=== PATIENT | male | born 1940 | race Caucasian/White ===

== ENCOUNTER 2024-02-12 20:18 | Emergency (ER) | payer MEDICARE, SELFPAY ==
--- NOTE | ~2024-02-12 | XR_ITS ---
EXAMINATION: XR CHEST CLINICAL INFORMATION: SOB. COMPARISON: CT chest 02/12/2024 TECHNIQUE: 1 view of the chest was obtained. FINDINGS: The lungs are well-expanded with left basilar scarring or atelectasis. Rest of lungs are clear. The heart size and pulmonary vascularity is normal. There are pacer electrodes in right atrium and right ventricle. No gross bony abnormality seen. XR/XR chest 1V IMPRESSION: Left basilar atelectasis or scarring. No acute process seen.
--- NOTE | ~2024-02-12 | CT_ITS ---
EXAMINATION: CT CHEST WITHOUT CONTRAST CLINICAL INFORMATION: Aspiration COMPARISON: Chest x-ray February 12, 2024 TECHNIQUE: Multidetector volumetric CT imaging of the chest was done. Axial MIP volume rendering provided. Sagittal and coronal reformatted images were obtained. This CT examination was performed using dose optimization techniques as appropriate, variously including the following: *Automated exposure control *Adjustment of mA and/or kV according to patient size (this includes techniques or standardized protocols for targeted exams where dose is matched to indication/reason for exam; i.e. extremities or head) *Use of iterative reconstruction technique DLP: 358 mGy-cm FINDINGS: LUNGS: No acute airspace disease. Small band of linear scarring or linear atelectasis at the left lung base. The left diaphragm is asymmetrically elevated above the right. Lungs are otherwise normally aerated. Central bronchi are open. No suspicious lung mass. There are a few scattered calcified granulomas. Linear parenchymal scarring at the anterior right lung base. MEDIASTINUM: No significant lymphadenopathy. There are a few shotty subcentimeter lymph nodes in the pretracheal retrovascular space, AP window and subcarina. The heart size is normal. Small pericardial effusion. Pacemaker leads in right atrium and right ventricle. Vascular calcifications of aorta and great vessels. No aneurysm of aorta. CORONARY ARTERY CALCIFICATION: Heavy coronary artery calcification. PLEURA: There is no pleural effusion. No pleural mass or thickening. AXILLA: No lymphadenopathy. UPPER ABDOMEN: Small calcified gallstones layering dependently in the gallbladder. No gallbladder wall thickening or pericholecystic fluid. No dilatation of bile ducts. No focal abnormality in visualized portions of the solid organs of the upper abdomen. OSSEOUS STRUCTURES: Multilevel degenerative spondylosis spine. CT/CT chest wo IV con IMPRESSION: 1. No acute airspace disease. 2. Pacemaker leads in right atrium and right ventricle. Small pericardial effusion. 3. Cholelithiasis. Fleischner guidelines were followed.
[2024-02-12 20:34] VITALS: BP 140/70; PULSE 80; O2SAT 97; BMI 28.8
--- NOTE | 2024-02-12 20:37 | ECG_ITS ---
Test Reason : SOB Blood Pressure : / mmHG Vent. Rate : 082 BPM Atrial Rate : 082 BPM P-R Int : 176 ms QRS Dur : 152 ms QT Int : 404 ms P-R-T Axes : 035 016 015 degrees QTc Int : 472 ms Sinus rhythm with sinus arrhythmia with occasional Premature ventricular complexes Right bundle branch block Abnormal ECG No previous ECGs available Referred By: Generic ED Physician Electronically Signed By:KARRI BORGES MD
--- NOTE | 2024-02-12 20:46 | ED.SOB ---
HPI - SOB/Dyspnea General Chief Complaint: Dyspnea Stated Complaint: SOB Time Seen by Provider: 02/12/24 20:45 Source: patient Mode of arrival: ambulatory Limitations: no limitations History of Present Illness ED Provider: adriana CANSECO Narrative: Patient's history of hiatal hernia status post repair few months ago was doing much better no difficulty in swallowing patient had supper at 17:00 within half an hour of eating meals patient has started coughing and feels something in mid chest similar to that in the past before surgery but less severe no chest pain no fever or chills patient will drink liquids afterwards Related Data Previous Rx's ?Medication ?Instructions ?Recorded benzonatate 200 mg capsule 200 mg PO TID PRN cough #30 caps 02/12/24 Allergies Allergy/AdvReac Type Severity Reaction Status Date / Time No Known Allergies Allergy Verified 02/12/24 20:37 Review of Systems Review of Systems: Yes all other systems are reviewed and are negative [facility] Social History Social History Smoked in Last 30 Days: No Use of substances other than those prescribed or required for medical reasons: No Advance Directives: No Advance Directives Information Provided: No Do you have a plan to hurt others: No Plan Physical Exam Vital Signs: Vital Signs: Last Vital Signs Temp 99.9 F 02/12/24 22:35 Pulse 88 02/12/24 22:35 Resp 14 02/12/24 22:35 BP 119/63 02/12/24 22:35 Pulse Ox 95 02/12/24 22:35 O2 Del Method Room Air 02/12/24 22:35 BMI result Body Mass Index 28.8 Appearance: Alert. Oriented X3. No acute distress. Eyes: No pallor or icterus ENT: Pharynx normal. Oral Mucosa moist Neck: Normal inspection. Neck supple. CVS: Normal heart rate and rhythm. Pulses normal. Respiratory: No respiratory distress. Equal air entry bilateral, rales on the left side posteriorly Abdomen: Soft and nontender. Bowel sounds are present, Skin: Skin warm and dry. Normal skin color. Normal skin turgor. Extremities: No lower extremity edema. No calf tenderness Neuro: Oriented X 3. No motor deficit. Medications Administered Discontinued Medications Generic Name Dose Route Start Last Admin Trade Name Freq PRN Reason Stop Dose Admin Benzonatate 200 mg 02/12/24 22:14 02/12/24 22:23 Benzonatate 100 Mg Capsule PO 02/12/24 22:15 200 mg ONCE ONE Administration Medical Decision Making Medical Decision Making [facility] Narrative: Patient with acute irritation in the throat after eating food CT scan negative for any aspiration discharge patient home on supportive treatment Differential Diagnosis Differential Diagnoses: The differential diagnosis associated with the presentation includes Aspiration pneumonia/bronchitis Lab Data [facility] Lab Attestation statement: I reviewed the patient's lab results. 02/12/24 20:45 02/12/24 20:45 Labs: Lab Results 02/12/24 Range/Units 20:45 WBC 11.1 H (4.8-10.8) X10*3/uL RBC 4.24 L (4.60-5.80) X10*6/uL Hgb 12.0 L (14.0-18.0) g/dl Hct 35.1 L (42.0-52.0) % MCV 82.8 (80.0-98.0) fL MCH 28.3 (27.0-33.0) pg MCHC 34.2 (31.0-36.0) g/dl RDW 14.5 (11.0-16.0) % Plt Count 210 (160-400) X10*3/uL MPV 9.6 (9.4-12.4) fL Immature Gran % (Auto) 0.5 H (0.0-0.4) % Neut % (Auto) 71.4 (45-73) % Lymph % (Auto) 15.9 L (20-40) % Anson % (Auto) 8.5 (2-11) % Eos % (Auto) 3.2 (0-4) % Baso % (Auto) 0.5 (0-2) % Lymph # (Auto) 1.8 (1.2-4.9) X10*3/uL Anson # (Auto) 0.9 (0.1-1.2) X10*3/uL Eos # (Auto) 0.4 (0.0-0.4) X10*3/uL Baso # (Auto) 0.1 (0.0-0.2) X10*3/uL Abs Immat Gran (auto) 0.05 H (0.00-0.03) X10*3/uL Absolute Neuts (auto) 7.9 (2.0-8.3) x10*3/uL Absolute Nucleated RBC 0.000 (0.0-0.012) X10*3/uL Nucleated RBC % (auto) 0.0 (0.0-0.2) /100WBC Sodium 134 L (135-145) mmol/L Potassium 3.9 (3.3-5.1) mmol/L Chloride 97 (96-108) mmol/L Carbon Dioxide 24 (22-29) mmol/L Anion Gap 17 (12-20) BUN 15 (9-16) mg/dL Creatinine 0.88 (0.5-1.4) mg/dL Estim Creat Clear Calc 73.4 Estimated GFR > 60 Random Glucose 178 H (60-115) mg/dL Calcium 9.4 (8.4-10.2) mg/dL Magnesium 1.7 (1.6-2.6) mg/dL Total Bilirubin 0.3 (0.0-1.0) mg/dL AST 20 (5-37) U/L ALT 11 (0-40) U/L Alkaline Phosphatase 75 (39-117) U/L Troponin I High Sens 15.6 (<3.5-35.0) ng/L B-Natriuretic Peptide 113 H (<100) pg/mL Total Protein 6.8 (6.5-8.0) g/dL Albumin 3.6 (3.5-5.0) g/dL Influenza Type A (PCR) NEGATIVE (Negative) Influenza Type B (PCR) NEGATIVE (Negative) RSV RNA Qual (PCR) NEGATIVE (Negative) SARS-CoV-2 RNA (RT-PCR) NEGATIVE (Negative) Independent Interpretation I performed an independent interpretation of an: CT Scan Radiology Impression Discussion of test interpretation with radiology: I have reviewed the radiologist's reading. Discharge Plan Discharge Clinical Impression: Cough Patient Disposition: Home, Self-Care Instructions: Acute Cough (ED) Additional Instructions: Likely have irritation which causing the cough no signs of aspiration CT scan is negative Cough drops as advised Follow with PCP if cough continues or have fever Prescriptions: New benzonatate 200 mg capsule 200 mg PO TID PRN (Reason: cough) Qty: 30 0RF Interventions: ED Discharge Assessment Last Done: 02/12/24 22:35 Discharge Date/Time: 02/12/24 22:36 Print Language: Japanese
[2024-02-12 20:51] LABS: MANUAL DIFF FLAG NO
[2024-02-12 20:52] VITALS: BP 128/60; PULSE 77; RESP 17; TEMP 37.2; O2SAT 97
[2024-02-12 20:56] LABS: Basophils Absolute Auto 0.1 X10*3/uL (0.0-0.2); Basophils Percent Auto 0.5 % (0-2); Eosinophils Absolute Auto 0.4 X10*3/uL (0.0-0.4); Eosinophils Percent Auto 3.2 % (0-4); Hematocrit 35.1 % (42.0-52.0); Imm Gran Abs Auto 0.05 X10*3/uL (0.00-0.03); Imm Gran Pct Auto 0.5 % (0.0-0.4); Lymphocytes Absolute Auto 1.8 X10*3/uL (1.2-4.9); Lymphocytes Percent Auto 15.9 % (20-40); Mean Corpuscular HGB Conc 34.2 g/dl (31.0-36.0); Mean Corpuscular Hemoglobin 28.3 pg (27.0-33.0); Mean Corpuscular Volume 82.8 fL (80.0-98.0); Mean Platelet Volume 9.6 fL (9.4-12.4); Monocytes Absolute Auto 0.9 X10*3/uL (0.1-1.2); Monocytes Percent Auto 8.5 % (2-11); Neutrophils Absolute Auto 7.9 x10*3/uL (2.0-8.3); Neutrophils Percent Auto 71.4 % (45-73); Platelet Count 210 X10*3/uL (160-400); Red Blood Count 4.24 X10*6/uL (4.60-5.80); Red Cell Distribution Width 14.5 % (11.0-16.0); White Blood Count 11.1 X10*3/uL (4.8-10.8)
[2024-02-12 21:07] LABS: Alanine Aminotransferase 11 U/L (0-40); Albumin Level 3.6 g/dL (3.5-5.0); Alkaline Phosphatase 75 U/L (39-117); Anion Gap 17 (12-20); Aspartate Amino Transferase 20 U/L (5-37); Bilirubin Total 0.3 mg/dL (0.0-1.0); Blood Urea Nitrogen 15 mg/dL (9-16); Calcium 9.4 mg/dL (8.4-10.2); Carbon Dioxide 24 mmol/L (22-29); Chloride 97 mmol/L (96-108); Creatinine Clr Calc Pharmacy 73.4; Estimated Glomerular Filt Rate > 60; Glucose Random 178 mg/dL (60-115); Magnesium 1.7 mg/dL (1.6-2.6); Potassium 3.9 mmol/L (3.3-5.1); Sodium 134 mmol/L (135-145); Total Protein 6.8 g/dL (6.5-8.0)
[2024-02-12 21:13] LABS: B Type Natriuretic Peptide 113 pg/mL (<100)
[2024-02-12 21:14] LABS: Troponin-I High Sensitivity 15.6 ng/L (<3.5-35.0)
[2024-02-12 21:29] LABS: Influenza A PCR NEGATIVE (Negative); Influenza B PCR NEGATIVE (Negative); Resp Syncy Virus RNA Qual PCR NEGATIVE (Negative); SARS COV2 PCR INHOUSE NEGATIVE (Negative)
[2024-02-12 21:41] VITALS: BP 119/63; PULSE 88; RESP 14; TEMP 37.7; O2SAT 95
--- NOTE | 2024-02-12 21:43 | PC.NURSE ---
Patient w/ persistent cough, sob x 1 day, had Pacer placed October 2023 @ [facility] w/ Dr. Deleon Patient intermittently paced with runs of what looks like ST/ Vtach through the pacing.
[2024-02-12] MEDS: Benzonatate 100 MG CAPSULE 200 MG PO (22:23)
[2024-02-12 22:35] VITALS: BP 119/63; PULSE 88; RESP 14; TEMP 37.7; O2SAT 95
== END 2024-02-12 22:36 | disposition home or self-care (01) ==
PROVIDERS: Emergency Provider Internal Medicine; PCP Internal Medicine
DX: R05.9 Cough, unspecified (principal); R06.02 Shortness of breath; Z03.818 Encounter for observation for suspected exposure to other biological agents ruled out
CPT/HCPCS: 0241U; 36415; 71045; 71250; 80053; 83735; 83880; 84484; 85025; 93005; 99284

== ENCOUNTER → 2024-02-12 20:37 | Outpatient (BNV) | payer MEDICARE, SELFPAY | PROVIDERS: Emergency Provider Internal Medicine; PCP Internal Medicine; Visit Provider Internal Medicine Cardiovascular Disease | DX: R94.31 Abnormal electrocardiogram [ECG] [EKG] (principal) | CPT/HCPCS: 93010 ==